=== PATIENT | male | born 1945 | race Hispanic/Latino ===

== ENCOUNTER → 2018-07-29 | Outpatient (CLI) | payer MEDICARE ==
--- NOTE | 2018-07-29 14:07 | Diagnostic Imaging Report ---
Exam: Lumbar spine AP lateral oblique and sacrum AP and lateral History: Back pain Comparison: None. Findings: No fracture. Degenerative anterolisthesis of L4 on L5. Multilevel degenerative endplate change most prominent at L5-S1 with vacuum effect. Facet arthrosis L4-L5 and L5-S1. Mild sacroiliac degenerative arthrosis. 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 Mild sacroiliac degenerative arthrosis. Signed by: Dr. Antony Johnson M.D. on 07/29/2018 2:03 PM
== END ==
LOC: RAD 12:47
PROVIDERS: ATTEND Internal Medicine
DX: M54.5 Low back pain (principal)
CPT/HCPCS: 72110; 72220

== ENCOUNTER → 2019-03-05 | Outpatient (CLI) | payer MEDICARE ==
--- NOTE | 2019-03-05 14:18 | Diagnostic Imaging Report ---
EXAMINATION: CHEST 2 VIEWS INDICATION: Chest pain. COMPARISON: None FINDINGS: TUBES and LINES: None. LUNGS: Lungs are well inflated. Lungs are clear. There is no evidence of pneumonia or pulmonary edema. PLEURA: No pleural effusion or pneumothorax. HEART AND MEDIASTINUM: The cardiomediastinal silhouette is unremarkable. BONES AND SOFT TISSUES: No acute osseous abnormality. Degenerative changes of the visualized spine. UPPER ABDOMEN: No free air under the diaphragm. IMPRESSION: No acute radiographic abnormality. Signed by: Dr. Jac Germain MD on 03/05/2019 2:14 PM
== END ==
LOC: RAD 12:59
PROVIDERS: ATTEND Internal Medicine
DX: R07.9 Chest pain, unspecified (principal)
CPT/HCPCS: 71046

== ENCOUNTER → 2019-04-21 | Day surgery (SDC) | payer MEDICARE ==
[~2019-04-21] MED LIST: ASPIR 8181 MG PO; CARVEDILOL3.125 MG PO; FENTANYL CITRATE/PF 100MCG/2 ML INJ ONE; FLOMAX0.4 MG PO; LEVOTHYROXINE50 MCG PO; LIDOCAINE HCL 1% 2 ML AMP ONE; MELOXICAM7.5 MG PO; MIDAZOLAM HCL 2 MG/2 ML VIAL ONE; OR PHACO EYE KIT ONE; PRAVASTATIN SOD20 MG PO; PREOP PHACO EYE KIT ONE
--- OUTSIDE RECORDS SUMMARY | 2019-04-21 11:58 | XMS REPORT ---
Author [facility] Address Unknown Phone Unavailable Care Team Providers Care Pararescue Manager Name Role Phone Alexsandra OLSON Unavailable Unavailable Problems This patient has no known problems. Allergies, Adverse Reactions, Alerts This patient has no known allergies or adverse reactions. Medications This patient has no known medications. Results Test Description Test Time Test Comments Text Results Atomic Results Result Comments CHEST 2 VIEWS 2019-03-05 14:12:00 [facility] [address] [address] Patient Name: JAYDE CRUZ MR #: [id number] : 1945 Age/Sex: 73/M Req #: [id number] Adm Physician: Ordered by: SUBHA OLSON MD Report #: [id number] Location: [facility] Room/Bed: Procedure: [id number] DX/CHEST 2 VIEWS Exam Date: 03/05/19 Exam Time: 1330 REPORT STATUS: Signed EXAMINATION: CHEST 2 VIEWS INDICATION: Chest pain. COMPARISON: None FINDINGS: TUBES and LINES: None. LUNGS: Lungs are well inflated. Lungs are clear. There is no evidence of pneumonia or pulmonary edema. PLEURA: No pleural effusion or pneumothorax. HEART AND MEDIASTINUM: The cardiomediastinal silhouette is unremarkable. BONES AND SOFT TISSUES: No acute osseous abnormality. Degenerative changes of the visualized spine. UPPER ABDOMEN: No free air under the diaphragm. IMPRESSION: No acute radiographic abnormality. Signed by: Dr. Laurent Benitez MD on 03/05/2019 2:14 PM Dictated By: LAURENT BENITEZ MD 13 Transcribed By: JEFFREY on 03/05/191413 COPY TO: SUBHA OLSON MD SACRUM X-RAY 2018-07-29 14:02:[address] [address] Patient Name: JAYDE CRUZ MR #: [id number] : 1945 Age/Sex: 72/M Req #: [id number] Adm Physician: Ordered by: SUBHA OLSON MD Report #: [id number] Location: [facility] Room/Bed: Procedure: [id number] DX/SACRUM X-RAY Exam Date: 07/29/18 Exam Time: 1320 REPORT STATUS: Signed Exam: Lumbar spine AP lateral oblique and sacrum AP and lateral History: Back pain Comparison: None. Findings: No fracture. Degenerative anterolisthesis of L4 on L5. Multilevel degenerative endplate change most prominent at L5-S1 with vacuum effect. Facet arthrosis L4-L5 and L5-S1. Mild sacroiliac degenerative arthrosis. 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 Mild sacroiliac degenerative arthrosis. Signed by: Dr. Amy Agarwal M.D. on 07/29/2018 2:03 PM Dictated By: AMY AGARWAL MD 02 Transcribed By: JEFFREY on 07/29/181402 COPY TO: SUBHA OLSON MD SP LUMBAR, COMPLETE MIN 4VW 2018-07-29 14:02:[address] [address] Patient Name: JAYDE CRUZ MR #: [id number] : 1945 Age/Sex: 72/M Req #: [id number] Adm Physician: Ordered by: SUBHA OLSON MD Report #: [id number] Location: [facility] Room/Bed: Procedure: [id number] DX/SP LUMBAR, COMPLETE MIN 4VW Exam Date: 07/29/18 Exam Time: 1320 REPORT STATUS: Signed Exam: Lumbar spine AP lateral oblique and sacrum AP and lateral History: Back pain Comparison: None. Findings: No fracture. Degenerative anterolisthesis of L4 on L5. Multilevel degenerative endplate change most prominent at L5-S1 with vacuum effect. Facet arthrosis L4-L5 and L5-S1. Mild sacroiliac degenerative arthrosis. 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 Mild sacroiliac degenerative arthrosis. Signed by: Dr. Amy Agarwal M.D. on 07/29/2018 2:03 PM Dictated By: AMY AGARWAL MD 02 Transcribed By: JEFFREY on 07/29/181402 COPY TO: SUBHA OLSON MD
[2019-04-21 16:00] VITALS: BP 131/79
== END | disposition home or self-care (01) ==
LOC: OR 11:56
PROVIDERS: ATTEND Ophthalmology
DX: H25.11 Age-related nuclear cataract, right eye (principal); I10 Essential (primary) hypertension; E78.5 Hyperlipidemia, unspecified; E03.9 Hypothyroidism, unspecified; N40.0 Benign prostatic hyperplasia without lower urinary tract symptoms; Z79.82 Long term (current) use of aspirin
CPT/HCPCS: 66984; J2001; J2250; V2632

== ENCOUNTER → 2019-05-05 | Day surgery (SDC) | payer MEDICARE ==
[~2019-05-05] MED LIST changes: -LIDOCAINE HCL 1% 2 ML AMP ONE
[2019-05-05 13:40] VITALS: BP 131/77
== END | disposition home or self-care (01) ==
LOC: OR 10:07
PROVIDERS: ATTEND Ophthalmology
DX: H25.12 Age-related nuclear cataract, left eye (principal); E03.9 Hypothyroidism, unspecified; M54.2 Cervicalgia; I10 Essential (primary) hypertension; E78.5 Hyperlipidemia, unspecified; N40.0 Benign prostatic hyperplasia without lower urinary tract symptoms; Z79.82 Long term (current) use of aspirin; Z87.01 Personal history of pneumonia (recurrent)
CPT/HCPCS: 66984; J2250; V2632; J3010

== ENCOUNTER 2020-08-31 13:56 | Inpatient (IN) | payer MEDICARE ==
[~2020-08-31] VITALS: Ht 190.5 cm; Wt 87.5 kg
[~2020-08-31 13:56] MED LIST changes: -FENTANYL CITRATE/PF 100MCG/2 ML INJ ONE; -MIDAZOLAM HCL 2 MG/2 ML VIAL ONE; -OR PHACO EYE KIT ONE; -PREOP PHACO EYE KIT ONE
[2020-08-31] MEDS ORDERED: PANTOPRAZOLE 40 MG 10ML VIAL IV STA (14:16)
[2020-08-31] MEDS ORDERED: ASPIRIN 81 MG CHEW TAB PO ONE (14:30)
[2020-08-31 14:46] LABS: BASOPHILS % 0.6 % (0.0-1.0); EOSINOPHILS % 0.7 % (0.0-6.0); HEMATOCRIT 41.3 % (38.2-49.6); HEMOGLOBIN 14.4 g/dL (14.0-18.0); LYMPHOCYTES # (AUTO) 1.3 (1.0-3.2); LYMPHOCYTES % 23.1 % (18.0-39.1); MEAN CORPUSCULAR HGB CONC 34.9 g/dL (31-35); MEAN CORPUSCULAR VOLUME 88.8 fL (81-99); MONOCYTES # (AUTO) 0.3 (0.2-0.8); MONOCYTES % 6.3 % (4.4-11.3); NEUTROPHILS # (AUTO) 3.7 (2.1-6.9); NEUTROPHILS % 69.1 % (38.7-80.0); PLATELET COUNT 157 x10e3/uL (140-360); RED BLOOD COUNT 4.65 x10e6/uL (4.3-5.7); RED CELL DISTRIBUTION WIDTH 12.6 % (11.7-14.4)
[2020-08-31 14:51] LABS: INR 0.91; PARTIAL THROMBOPLASTIN TIME 30.8 seconds (23.8-35.5); PROTHROMBIN TIME 12.7 seconds (11.9-14.5)
[2020-08-31 15:01] LABS: ALANINE AMINOTRANSFERASE 16 IU/L (0-55); ALBUMIN/GLOBULIN RATIO 1.2 (0.8-2.0); ALKALINE PHOSPHATASE 78 IU/L (40-150); ANION GAP 11.1 mmol/L (8-16); BLOOD UREA NITROGEN 12 mg/dL (7-26); BUN/CREATININE RATIO 13 (6-25); CALCIUM 8.4 mg/dL (8.4-10.2); CARBON DIOXIDE 26 mmol/L (22-29); CHLORIDE 105 mmol/L (98-107); CREATINE KINASE 94 IU/L (30-200); CREATININE, SERUM 0.95 mg/dL (0.72-1.25); EST GLOMERULAR FILTRATION RATE > 60 ML/MIN (60-); GLUCOSE 114 mg/dL (74-118); POTASSIUM 4.1 mmol/L (3.5-5.1); SODIUM 138 mmol/L (136-145)
--- NOTE | 2020-08-31 15:25 | Diagnostic Imaging Report ---
EXAM: CHEST SINGLE (NOT PORTABLE) DATE: 08/31/2020 2:25 PM INDICATION: Chest pain COMPARISON: 03/05/2019 FINDINGS: The trachea is midline. The lungs are symmetrically expanded without evidence for large focal consolidation, pneumothorax, or significant pleural effusion. The cardiomediastinal silhouette and pulmonary vasculature are within normal limits. No acute osseous abnormality is identified. The surrounding soft tissues are unremarkable. IMPRESSION: No acute cardiopulmonary process identified. Signed by: Dr. Cabrera Negron MD on 08/31/2020 3:21 PM
--- NOTE | 2020-08-31 16:01 | Emergency Department Note ---
History of Present Illnes History of Present Illness Chief Complaint: Chest Pain History of Present Illness This is a 75 year old male PATIENT IN FROM HOME WITH COMPLAINTS OF CHEST PAIN OFF AND ON X 6 DAYS; STATES THAT HE SAW DR Jered OLSON 2 DAYS AGO FOR THE CHEST PAIN ANDWAS GIVEN NITRO TABS. STATES TOOK A NITRO THIS MORNING AND IT HELPED, BUT THEN THE PAIN CAME BACK. PATIENT ALERT AND ORIENTED, RESP EVEN AND NONLABORED, APPEARS IN NO DISTRESS, DENIES PAIN AT THIS TIME. Historian: Patient Arrival Mode: Car Roll Shop Supervisor Required: No Onset (how long ago): day(s) (6) Location: Quality: PRESSURE Radiation: Reports non-radiation Severity: moderate Onset quality: gradual Timing of current episode: intermittent Progression: waxing and waning Chronicity: new Relieving factors: none Exacerbating factors: none Associated symptoms: Reports denies other symptoms Past Medical/Family History Physician Review I have reviewed the patient's past medical and family history. Any updates have been documented here. Past Medical History Recent Fever: No Clinical Suspicion of Infectio: No New/Unexplained Change in Ment: No Past Medical History: Hypertension, Hypothyroidism, GERD, Hyperlipedemia Other Medical History: BPH Past Surgical History: Cholecysctectomy, Appendectomy Social History Smoking Cessation: Never Smoker Counseling Performed: No Alcohol Use: Social Any Illegal Drug Use: No TB Exposure/Symptoms: No Physically hurt or threatened: No Family History Family history of heart diseas: Yes Other Last Tetanus: Y Any Pre-Existing Lines (PICC,: No Review of Systems Review of Systems Constitutional: Reports no symptoms EENTM: Reports no symptoms Cardiovascular: Reports as per HPI Respiratory: Reports no symptoms Gastrointestinal: Reports no symptoms Genitourinary: Reports no symptoms Musculoskeletal: Reports no symptoms Integumentary: Reports no symptoms Neurological: Reports no symptoms Psychological: Reports no symptoms Endocrine: Reports no symptoms Hematological/Lymphatic: Reports no symptoms Review of other systems: All other systems negative Physical Exam Related Data Allergies: Coded Allergies: No Known Allergies (Unverified , 08/26/15) Triage Vital Signs Vital Signs Date Time Temp Pulse Resp B/P (MAP) Pulse Ox O2 Delivery O2 Flow Rate FiO2 08/31/20 14:11 98.2 66 20 147/84 100 Room Air Vital signs reviewed: Yes Physical Exam CONSTITUTIONAL Constitutional: Present well-developed, Present well-nourished HENT HENT: Present normocephalic, Present atraumatic, Present oropharynx clear/moist, Present nose normal HENT L/R: Present left ext ear normal, Present right ext ear normal EYES Eyes: Reports PERRL, Reports conjunctivae normal NECK Neck: Present ROM normal PULMONARY Pulmonary: Present effort normal, Present breath sounds normal CARDIOVASCULAR Cardiovascular: Present regular rhythm, Present heart sounds normal, Present capillary refill normal, Present normal rate GASTROINTESTINAL Abdominal: Present soft, Present nontender, Present bowel sounds normal GENITOURINARY Genitourinary: Present exam deferred SKIN Skin: Present warm, Present dry MUSCULOSKELETAL Musculoskeletal: Present ROM normal NEUROLOGICAL Neurological: Present alert, Present oriented x 3, Present no gross motor or sensory deficits PSYCHOLOGICAL Psychological: Present mood/affect normal, Present judgement normal Results Laboratory Result Diagram: 08/31/20 1240 08/31/20 1420 Laboratory Laboratory Tests Test 08/31/20 14:20 08/31/20 12:40 Prothrombin Time 12.7 seconds (11.9-14.5) Prothromb Time International Ratio 0.91 Activated Partial Thromboplast Time 30.8 seconds (23.8-35.5) Sodium Level 138 mmol/L (136-145) Potassium Level 4.1 mmol/L (3.5-5.1) Chloride Level 105 mmol/L (98-107) Carbon Dioxide Level 26 mmol/L (22-29) Anion Gap 11.1 mmol/L (8-16) Blood Urea Nitrogen 12 mg/dL (7-26) Creatinine 0.95 mg/dL (0.72-1.25) Estimat Glomerular Filtration Rate > 60 ML/MIN (60-) BUN/Creatinine Ratio 13 (6-25) Glucose Level 114 mg/dL (74-118) Calcium Level 8.4 mg/dL (8.4-10.2) Total Bilirubin 0.7 mg/dL (0.2-1.2) Aspartate Amino Transf (AST/SGOT) 20 IU/L (5-34) Alanine Aminotransferase (ALT/SGPT) 16 IU/L (0-55) Alkaline Phosphatase 78 IU/L (40-150) Creatine Kinase 94 IU/L (30-200) Creatine Kinase MB 1.80 ng/mL (0-5.0) Troponin I < 0.001 ng/mL (0-0.300) B-Type Natriuretic Peptide 30.4 pg/mL (0-100) Total Protein 7.3 g/dL (6.5-8.1) Albumin 4.0 g/dL (3.5-5.0) Globulin 3.3 g/dL (2.3-3.5) Albumin/Globulin Ratio 1.2 (0.8-2.0) White Blood Count 5.40 x10e3/uL (4.8-10.8) Red Blood Count 4.65 x10e6/uL (4.3-5.7) Hemoglobin 14.4 g/dL (14.0-18.0) Hematocrit 41.3 % (38.2-49.6) Mean Corpuscular Volume 88.8 fL (81-99) Mean Corpuscular Hemoglobin 31.0 pg (28-32) Mean Corpuscular Hemoglobin Concent 34.9 g/dL (31-35) Red Cell Distribution Width 12.6 % (11.7-14.4) Platelet Count 157 x10e3/uL (140-360) Neutrophils (%) (Auto) 69.1 % (38.7-80.0) Lymphocytes (%) (Auto) 23.1 % (18.0-39.1) Monocytes (%) (Auto) 6.3 % (4.4-11.3) Eosinophils (%) (Auto) 0.7 % (0.0-6.0) Basophils (%) (Auto) 0.6 % (0.0-1.0) Neutrophils # (Auto) 3.7 (2.1-6.9) Lymphocytes # (Auto) 1.3 (1.0-3.2) Monocytes # (Auto) 0.3 (0.2-0.8) Eosinophils # (Auto) 0.0 (0.0-0.4) Basophils # (Auto) 0.0 (0.0-0.1) Absolute Immature Granulocyte (auto 0.01 x10e3/uL (0-0.1) Lab results reviewed: Yes Imaging Imaging results reviewed: Yes Procedures 12 Lead ECG Interpretation ECG Interpretation : ECG: ECG 1 Roll Shop Supervisor: Interpreted by ED physician Date: Aug 31, 2020 Time: 14:13 Rhythm: sinus rhythm Ectopy: infrequent PVC's (AND PAC'S) Rate: normal BPM: 76 QRS axis: right ST segments normal: Yes T waves normal: Yes Clinical Impression: abnormal ECG Assessment & Plan Medical Decision Making MDM PT WITH CP AND KNOWN CAD 80% LAD LESION - CBC, CHEM, CARDIACS, ECG, CXR - ADMIT R/O STEMI/NSTEMI/ACS Reassessment Reassessment PT OF Gabriela OLSON - ADMIT TO DR COPE, I SPOKE W/ DR MCADNIEL FOR CONSULT Assessment & Plan Final Impression: (1) Chest pain Depart Disposition: ADMITTED Last Vital Signs Date Time Temp Pulse Resp B/P (MAP) Pulse Ox O2 Delivery O2 Flow Rate FiO2 08/31/20 14:11 98.2 66 20 147/84 100 Room Air Home Meds Reported Medications Meloxicam (MELOXICAM) 7.5 Mg Tablet, 15 MG PO PRN, #30 TAB 04/15/19 Aspirin (ASPIR 81) 81 Mg Tablet.dr, 81 MG PO DAILY 04/15/19 Levothyroxine Sodium (LEVOTHYROXINE SODIUM) 50 Mcg Tablet, 25 MCG PO DAILY, #30 TAB 04/15/19 Pravastatin Sodium (PRAVASTATIN SODIUM) 20 Mg Tablet, 20 MG PO DAILY 04/15/19 Carvedilol (CARVEDILOL) 3.125 Mg Tablet, 3.125 MG PO BID, #60 TAB 04/15/19 Tamsulosin Hcl* (FLOMAX*) 0.4 Mg Cap, 0.4 MG PO DAILY, #30 CAP 04/15/19 Medications in the ED Pantoprazole Sodium 40 mg ONCE STAT IV ; Start 08/31/20 at 14:16; Stop 08/31/20 at 14:26; Status DC Aspirin 81 mg PRN ONCE PO ; Start 08/31/20 at 14:30; Stop 08/31/20 at 14:31; Status DC JAVY CABALLERO MD Aug 31, 2020 16:01
[2020-08-31] MEDS ORDERED: ONDANSETRON HCL INJ 2MG/ML 2ML 2 MG/ML VIAL IV PRN (16:15)
[2020-08-31] MEDS ORDERED: MORPHINE SULFATE 2 MG/ML SYR 1ML IV PRN (16:15)
[2020-08-31] MEDS ORDERED: NITROGLYCERIN 0.4 MG SUBL SL PRN (16:15)
[2020-08-31] MEDS: FAMOTIDINE 20 MG/2 ML VIAL IV SCH (16:34)
[2020-08-31 21:04] VITALS: BP 137/89
[2020-08-31 21:05] VITALS: BP 137/89
[2020-08-31] MEDS ORDERED: PRAVASTATIN 20 MG TAB PO SCH (21:45)
[2020-08-31] MEDS ORDERED: MELOXICAM 7.5 MG TAB PO PRN (21:45)
--- NOTE | 2020-08-31 21:45 | NUR ---
IV TO L AC REMOVED D/T OCCLUSION. CATHETER TIP INTACT, PRESSURE DRESSING WITH COBAN APPLIED D/T BLOOD THINNERS TO ENSURE HEMOSTASIS. NEW IV PLACED TO R AC 20G. Addendum: 08/31/20 at 2252 by Misty Javier RN WRONG PATIENT. L AC 20G IV INTACT.
[2020-08-31 22:51] LABS: CREATINE KINASE MB 1.6 ng/mL (0-5.0)
[2020-09-01] VITALS (15 sets, daily range): BP systolic 106–135; BP diastolic 63–83
[2020-09-01 05:28] LABS: BASOPHILS % 0.7 % (0.0-1.0); EOSINOPHILS # (AUTO) 0.1 (0.0-0.4); EOSINOPHILS % 2.2 % (0.0-6.0); HEMATOCRIT 38.3 % (38.2-49.6); HEMOGLOBIN 13.7 g/dL (14.0-18.0); LYMPHOCYTES # (AUTO) 1.7 (1.0-3.2); LYMPHOCYTES % 28.9 % (18.0-39.1); MEAN CORPUSCULAR HEMOGLOBIN 31.9 pg (28-32); MEAN CORPUSCULAR HGB CONC 35.8 g/dL (31-35); MEAN CORPUSCULAR VOLUME 89.1 fL (81-99); MONOCYTES # (AUTO) 0.5 (0.2-0.8); MONOCYTES % 8.5 % (4.4-11.3); NEUTROPHILS # (AUTO) 3.5 (2.1-6.9); NEUTROPHILS % 59.4 % (38.7-80.0); PLATELET COUNT 148 x10e3/uL (140-360); RED CELL DISTRIBUTION WIDTH 12.4 % (11.7-14.4)
[2020-09-01] MEDS ORDERED: HYDRALAZINE HCL 20 MG/ML VIAL IV PRN ×2 (05:30→09:00)
[2020-09-01] MEDS: FAMOTIDINE 20 MG/2 ML VIAL IV SCH ×2 (05:57→17:02)
[2020-09-01] MEDS: LEVOTHYROXINE SODIUM 25 MCG TABLET PO SCH (05:57)
[2020-09-01 06:07] LABS: ALANINE AMINOTRANSFERASE 14 IU/L (0-55); ALBUMIN 3.5 g/dL (3.5-5.0); ALBUMIN/GLOBULIN RATIO 1.2 (0.8-2.0); ALKALINE PHOSPHATASE 64 IU/L (40-150); ANION GAP 11.9 mmol/L (8-16); BLOOD UREA NITROGEN 12 mg/dL (7-26); BUN/CREATININE RATIO 15 (6-25); CALCIUM 8.4 mg/dL (8.4-10.2); CARBON DIOXIDE 25 mmol/L (22-29); CHLORIDE 107 mmol/L (98-107); CHOL/HDL RATIO 2.3 (3.9-4.7); CHOLESTEROL 133 MD/DL (0-199); CREATININE, SERUM 0.79 mg/dL (0.72-1.25); EST GLOMERULAR FILTRATION RATE > 60 ML/MIN (60-); GLUCOSE 87 mg/dL (74-118); HDL CHOLESTEROL 59 MG/DL (40-60); LDL CHOLESTEROL 59 MG/DL (60-130); POTASSIUM 3.9 mmol/L (3.5-5.1); SODIUM 140 mmol/L (136-145); TRIGLYCERIDES 73 MG/DL (0-149)
[2020-09-01 06:20] LABS: CREATINE KINASE 79 IU/L (30-200)
[2020-09-01] MEDS: ASPIRIN 81 MG ENTERIC COATED PO SCH (08:11)
[2020-09-01] MEDS: TAMSULOSIN HCL 0.4 MG CAP PO SCH (08:11)
[2020-09-01] MEDS ORDERED: DOCUSATE SODIUM 100 MG CAP PO PRN (09:00)
[2020-09-01] MEDS ORDERED: POLYETHYLENE GLYCOL 3350 17 GM PACK PO PRN (09:00)
[2020-09-01] MEDS ORDERED: ACETAMINOPHEN 325 MG TAB PO PRN (09:00)
[2020-09-01] MEDS ORDERED: ONDANSETRON HCL INJ 2MG/ML 2ML 2 MG/ML VIAL IV PRN ×2 (09:00→14:30)
[2020-09-01] MEDS ORDERED: GUAIFENESIN/CODEINE 10 ML CUP PO PRN (09:00)
[2020-09-01] MEDS ORDERED: DEXTROSE 50% SYRINGE 50 ML IV PRN (09:00)
[2020-09-01] MEDS ORDERED: HYDROCODONE/APAP 5MG-325MG TAB PO PRN ×2 (09:00→14:30)
[2020-09-01] MEDS ORDERED: MELATONIN 5 MG TABLET PO PRN (09:00)
[2020-09-01] MEDS ORDERED: BENZONATATE 100 MG CAP PO PRN (09:00)
[2020-09-01] MEDS ORDERED: CLOPIDOGREL BISULFATE 75 MG TAB PO ONE ×2 (11:00→15:15)
[2020-09-01] MEDS ORDERED: MIDAZOLAM HCL 2 MG/2 ML VIAL ONE (12:58)
[2020-09-01] MEDS ORDERED: HEPARIN SOD/SOD CHLORIDE 2,000 ML ONE (12:59)
[2020-09-01] MEDS ORDERED: FENTANYL CITRATE/PF 100MCG/2 ML INJ ONE (12:59)
[2020-09-01] MEDS ORDERED: LIDOCAINE HCL 2% LOCAL 20 ML VIAL ONE (12:59)
[2020-09-01] MEDS ORDERED: IOPAMIDOL 370 MG/ML 200 ML INFUS..BTL INJ ONE (12:59)
[2020-09-01] MEDS ORDERED: SODIUM CHLORIDE 0.9% 1000ML 1,000 ML ONE (13:00)
--- NOTE | 2020-09-01 13:13 | NUR ---
Patient off the unit for procedure in lease administration supervisor, stable, at bed side
--- NOTE | 2020-09-01 13:15 | Consultation ---
DATE OF CONSULTATION: Cardiac Consultation REASON FOR CONSULTATION: Chest pain. HISTORY OF PRESENT ILLNESS: Mr. Brito is a 75-year-old gentleman, who is known with hypertension, hyperlipidemia, and coronary artery disease. In December 2016, he had a cardiac catheterization, which showed mid to distal LAD lesion at 80%, but more important, there is severe muscle bridge proximal to it and at the lesion and distal to it. We elected to treated him medically. He is doing extremely well except for the last week, he is having repeated angina. It is becoming very unstable. Associated with diaphoresis, typical chest pain, and typical symptoms. He came to the emergency room. His cardiac enzymes are normal. Cardiac consultation is obtained. I visited with the patient, whom he give atypical symptoms for coronary artery disease. In fact, the patient is very compliant with his medication. His pain becoming progressively worse. More important, it is associated with diaphoresis, nausea, vomiting, and then they disappeared. The patient is very alarmed by these symptoms, which is really progressive. REVIEW OF SYSTEMS: GENERAL: No fever. No chills. HEENT: No vision problem. No hearing problem. PULMONARY: No cough. No hemoptysis. CARDIAC: As per acute illness. GI: No hematemesis. No melena. : No hematuria. No dysuria. MUSCULOSKELETAL: No aches. No pain. SOCIAL HISTORY: He is . He is nonsmoker and non-alcohol drinker. PAST MEDICAL HISTORY: 1. Hypertension. 2. Coronary artery disease. 3. Hypercholesterolemia. 4. Appendectomy. 5. Cholecystectomy. FAMILY HISTORY: Mother at age 89 with kidney failure. She was diabetic. Father of colon cancer at age 79. Fifteen siblings, several of them with coronary artery disease and myocardial infarction, and one brother of prostate cancer. HOME MEDICATIONS: Aspirin 81 mg a day, Coreg 3.125 mg twice a day, levothyroxine 50 mcg a day, pravastatin 20 mg a day, and Flomax 0.4 mg a day. ALLERGIES: NONE. PHYSICAL EXAMINATION: VITAL SIGNS: Height of 6 feet 3 inches, weight of 204 pounds. Blood pressure 130/70, heart rate of 70, and respiratory rate of 18. HEENT: Pupils are equal and reactive. NECK: No elevation of jugular venous pulsation. No bruit. CHEST: Clear to auscultation and percussion. HEART: PMI 5th left intercostal space. Normal first and second heart sound. ABDOMEN: Scar is noted. No organomegaly. No abdominal bruits. EXTREMITIES: No cyanosis. No clubbing. No edema. NEUROLOGIC: Nonfocal. LABORATORY DATA: Cardiac enzymes are normal. Triglycerides of 73, cholesterol of 133, HDL of 59, and LDL of 59. Chest x-ray by report is normal. IMPRESSION AND PLAN: 1. Acute coronary syndrome with very unstable symptoms. 2. Known to have coronary artery disease. 3. Past history of abnormal nuclear stress test. 4. Hypertension. 5. Abnormal EKG. Case discussed and explained. We are going to proceed with cardiac catheterization with possible intervention. Procedure risks, benefits, and alternatives are discussed and explained. MD NGUYEN Martins/MODL /[id number]
[2020-09-01] MEDS ORDERED: BIVALRIUDIN 250 MG/VIAL VIAL IV ONE (13:42)
[2020-09-01] MEDS ORDERED: SODIUM CHLORIDE 0.9% 50ML 50 ML ONE (13:43)
[2020-09-01] MEDS ORDERED: CLOPIDOGREL BISULFATE 75 MG TAB ONE (13:44)
[2020-09-01] MEDS ORDERED: ASPIRIN 325 MG TAB ONE (13:44)
--- NOTE | 2020-09-01 14:01 | NUR ---
1410p Recovery phase initiated bedside report received from LINH Cullen.Identiferx2 ,Alert oriented and appropriate, PERRLA, respirations even and unlabored to room air. Pulses x4 extremities equal and strong. Right hand + neurovascular function Cap fill brisk < [address] with stop cock and secured No s/s of hematoma or gross abnormality. Skin warm and dry integrity appears intact. IV 0.9Ns to left ac. presents healthy w/o s/s of infiltration or complaint. Angiomax infusion @ 32.9 ml till complete. Abdomen soft and supple. pt offered toileting, denies need to urinate or defecate. No personal affects with patient. Family not available. Pt understanding of POC. Bedside telemetry/monitoring initiated. Currently w/o complaint of pain or need. Call light within reach, bed low and locked, side rails up x2. pt using personal mask for COVID-19 mitigation. Sheath pull scheduled 1545pm. Reported to cath pull team for support. alejandro/linh
[2020-09-01] MEDS ORDERED: MORPHINE SULFATE INJ 4 MG/ML INJ 1ML IV PRN (14:30)
--- NOTE | 2020-09-01 15:50 | NUR ---
1550p sheath pull in progress vs stable Isidro phamer Araceli Kilpatrick on standby 1550pm B/p 119/76 Pr 67 18 99% RA 1555pm B/p 121/74 Pr 71 20 99% Ra 1600pm B/p 123/81 Pr 62 18 99% Ra 1605pm B/p 120/73 Pr62 18 99% Ra 1610pm B/p 109/75 Pr68 19 99% Ra Tegaderm site stable. No gross issues pain,pallor,pressure ds/rn
--- NOTE | 2020-09-01 16:15 | NUR ---
1615p Sheath pull completed per Isidro Kilpatrick site w/o s/s hematoma or oozing 2x2 width Tegaderm dressing PPx4 palpable.Phone report to Yael Kilpatrick pt had Lad fix and Hospitalist made rounds while in recovery area. Currently case mgt flipping room to in patient status. NO gross issues pain,pallor,pressure or dysrhythmia.ds/rn
--- NOTE | 2020-09-01 16:30 | NUR ---
1630p Transfered to floor handoff complete to Shonna Conley by bed and with tele.. Report to tele room Left pt in room with family. Bed breaks on,call light at bedside. Site stable No gross issues pain pallor,pressure and dysrhythmia.alejandro/rn
--- NOTE | 2020-09-01 16:51 | NUR ---
Recvd patient from Learning Operations Specialist. AAOx3, Pedal pulse +1 on both legs, rt groin insertion site dressing intact, soft, no swelling or hematoma noted, keep monitoring, Bed rest until 9pm. at bed side
[2020-09-01] MEDS ORDERED: ENOXAPARIN SOD INJ 40 MG/0.4 ML SYR SC SCH (17:00)
[2020-09-01] MEDS: SODIUM CHLORIDE 0.9% 1000ML 1,000 ML IV SCH (17:01)
[2020-09-01] MEDS ORDERED: ATORVASTATIN 40 MG TAB PO SCH (21:00)
[2020-09-01] MEDS ORDERED: ATORVASTATIN 20 MG TAB PO SCH (21:00)
--- NOTE | 2020-09-01 21:00 | NUR ---
PATIENT'S TIME TO STAY FLAT IS FINISHED. CHECKED R GROIN DRESSING, C/D/I, TISSUE SOFT, NO DISCOLORATION NOTED. PEDAL PULSES PALPABLE. PATIENT VERBALIZED HE WOULD BE VERY CAREFUL WITH SITE TO R GROIN AND CALL IF ANYTHING CHANGES. WILL CONTINUE TO MONITOR CLOSELY.
[2020-09-01] MEDS ORDERED: CALCIUM CARBONATE 500 MG CHEWABLE TABS PO PRN (21:15)
--- NOTE | 2020-09-01 22:37 | Operative Report ---
DATE OF PROCEDURE: 09/01/2020 SURGEON: Becca Wheeler MD PROCEDURES PERFORMED: 1. Left heart cardiac catheterization coronary angiography. 2. Left ventriculography. 3. PCI (drug eluting) stent placement to the distal LAD. INDICATIONS FOR PROCEDURE: Mr. Brito is a 75-year-old male with past medical history of hypertension, hypercholesteremia, CAD, presents to this institution with class 4 angina/chest pain at rest that is relatively new onset compatible with an unstable angina. He was taken urgently to the laborer beam house. DESCRIPTION OF PROCEDURE: After risks, benefits, pros and cons of this procedure were explained, the patient agreed to procedure. The patient was brought to the cardiac catheterization laboratory where the right groin was prepped and draped in using sterile fashion. A 1% lidocaine solution was used to numb the right groin area. Access to the right femoral artery was obtained utilizing micropuncture system and a short 4- Somali Terumo sheath was placed. Selective coronary angiography of the tejon left and right coronary artery was performed with a JL5 and 3DRC diagnostic catheters respectively. Angled pigtail catheter was placed in the ventricle for ventriculography and hemodynamic assessment of ventricular filling pressures. In short, we ended up finding a 99% hazy distal LAD lesion, which was clearly the culprit artery. We decided to proceed with intervention. A 4-Somali Terumo sheath was upsized to a 6-Somali femoral sheath. IV Angiomax was given for systemic anticoagulation. We took a 6-Somali XB 4.0 guiding catheter and selected the left main coronary ostia. Utilizing a 180 cm run- through wire, we crossed the lesion. We took a resolute Venkat 2.0 x 18 mm drug-eluting stent deployed that up to 16 atmospheres of inflation for 30 seconds, which yielded the lesion. Final angiography revealed 0% residual stenosis, SAM-3 flow, and no complications. At that point in time, we decided to conclude the case. The sheath remains for manual pull once blood thickened in about 2 hours. COMPLICATIONS: None. ESTIMATED BLOOD LOSS: Minimal. FINDINGS: 1. Left main is angiographically normal, gives rise to an LAD and circumflex branch. 2. The LAD has a 99% distal stenosis with haziness, which is clearly the culprit lesion. The 2nd diagonal branch is 100% totally occluded and is filled from [id number] collaterals from the distal LAD. 3. Left circumflex artery gives rise to a high anterolateral marginal branch and mid marginal branch and its branches are just with mild luminal irregularities. 4. The RCA is a large caliber vessel, dominant, gives rise to a large right PDA and large right PLV branch. There is 30% diffuse stenosis through this vessel. 5. Left ventricular ejection fraction is 60%. End-diastolic pressure is 18 mmHg. There is no significant LV to aortic pullback gradient. INTERVENTION SUMMARY: Successful treatment of the 99% distal LAD lesion with implantation of a resolute Venkat 2.0 x 18 mm drug eluting stent resulting in 0% residual stenosis, improvement of flow from SAM-3 with no complications. PLAN/RECOMMENDATIONS: 1. Aspirin and Plavix therapy. 2. Statin therapy. 3. Aggressive risk factor modification and medical therapy. MD ELIUD Ram/MICHAEL /[id number]
[2020-09-02] MEDS ORDERED: SODIUM CHLORIDE 0.9% 1000ML 1,000 ML IV SCH (00:15)
[2020-09-02] MEDS: FAMOTIDINE 20 MG/2 ML VIAL IV SCH (04:56)
[2020-09-02] MEDS: LEVOTHYROXINE SODIUM 25 MCG TABLET PO SCH (04:56)
[2020-09-02] MEDS: SODIUM CHLORIDE 0.9% 1000ML 1,000 ML IV SCH (04:56)
[2020-09-02 04:59] VITALS: BP 108/58
[2020-09-02 05:13] LABS: BASOPHILS % 0.6 % (0.0-1.0); EOSINOPHILS # (AUTO) 0.1 (0.0-0.4); EOSINOPHILS % 1.9 % (0.0-6.0); HEMOGLOBIN 13.5 g/dL (14.0-18.0); LYMPHOCYTES # (AUTO) 1.7 (1.0-3.2); MEAN CORPUSCULAR HEMOGLOBIN 30.6 pg (28-32); MEAN CORPUSCULAR HGB CONC 34.6 g/dL (31-35); MEAN CORPUSCULAR VOLUME 88.4 fL (81-99); MONOCYTES # (AUTO) 0.6 (0.2-0.8); MONOCYTES % 8.3 % (4.4-11.3); NEUTROPHILS # (AUTO) 4.3 (2.1-6.9); NEUTROPHILS % 63.9 % (38.7-80.0); PLATELET COUNT 157 x10e3/uL (140-360); RED BLOOD COUNT 4.41 x10e6/uL (4.3-5.7); RED CELL DISTRIBUTION WIDTH 12.5 % (11.7-14.4)
[2020-09-02 05:43] LABS: ALANINE AMINOTRANSFERASE 15 IU/L (0-55); ALBUMIN 3.5 g/dL (3.5-5.0); ALBUMIN/GLOBULIN RATIO 1.2 (0.8-2.0); ALKALINE PHOSPHATASE 73 IU/L (40-150); ANION GAP 11.7 mmol/L (8-16); BLOOD UREA NITROGEN 11 mg/dL (7-26); BUN/CREATININE RATIO 13 (6-25); CALCIUM 8.4 mg/dL (8.4-10.2); CARBON DIOXIDE 25 mmol/L (22-29); CHLORIDE 107 mmol/L (98-107); CREATININE, SERUM 0.86 mg/dL (0.72-1.25); EST GLOMERULAR FILTRATION RATE > 60 ML/MIN (60-); GLUCOSE 88 mg/dL (74-118); PHOSPHORUS 3.5 MG/DL (2.3-4.7); POTASSIUM 3.7 mmol/L (3.5-5.1); SODIUM 140 mmol/L (136-145)
[2020-09-02 06:16] LABS: CHOL/HDL RATIO 2.1 (3.9-4.7)
[2020-09-02] MEDS ORDERED: PANTOPRAZOLE SOD 40 MG TABEC PO SCH (07:30)
[2020-09-02 08:45] VITALS: BP 137/82
[2020-09-02] MEDS ORDERED: CLOPIDOGREL BISULFATE 75 MG TAB PO SCH ×2 (09:00)
[2020-09-02] MEDS: TAMSULOSIN HCL 0.4 MG CAP PO SCH (09:42)
[2020-09-02] MEDS: ASPIRIN 81 MG ENTERIC COATED PO SCH (09:42)
[2020-09-02 12:15] VITALS: BP 144/84
--- NOTE | 2020-09-02 14:18 | NUR ---
IMM letter delivered and explained to pt. He verbalized understanding. States ready to go home. Copy given to pt. Signed copy placed in chart.
[2020-09-02] MEDS ORDERED: CLOPIDOGREL75 MG PO (14:38)
[2020-09-02] MEDS ORDERED: LOSARTAN POTASS25 MG PO (14:38)
--- NOTE | 2020-09-02 14:46 | Discharge Summary ---
FINAL DISCHARGE DISGNOSES: 1. Chest pain, status post left heart catheterization with status post drug-eluting stent placement in the left anterior descending artery. 2. Hypertension. 3. Hyperlipidemia. CONSULTANTS: Cardiology. PHYSICAL EXAMINATION: VITAL SIGNS: Temperature is 97.9, pulse 57, respiratory rate is 20, blood pressure 111/80, pulse ox 99% on room air. LABORATORY FINDINGS: Show CBC 6.7, hemoglobin 13.5, hematocrit 39, platelets of 157. Chemistry reviewed. Sodium 140, potassium 3.7, chloride 107, bicarb 25, anion gap of 11. BUN is 11, creatinine is 0.86, glucose is 88, calcium is 8.4, phosphorus 3.5, magnesium 2. LFTs within normal range. Troponins were all negative. Albumin was 3.5, LDL was 51. Coagulation PT 12, INR 0.91, PTT 30.8. Silva virus not detected. MICROBIOLOGY: None. IMAGING STUDIES: Chest x-ray was found to be normal. HOSPITAL COURSE: A 75-year-old male, comes into the ED with complaints of chest pain substernally with typical symptoms. The patient underwent left heart catheterization on 09/01/2020 by Cardiology. The patient had a successful treatment of a 99% distal LAD lesion with implantation of a drug-eluting stent. The patient did well postprocedurally with no complaints. Chest pain was all resolved. He was maintained on oral anti-platelet therapy with aspirin, Plavix, statin and the rest of the cardioprotective medications. The patient stayed overnight until 09/02/2020, in which he was doing well. He was chest pain free prior to being discharged to home. His heart rate was low in which we educated the patient about discontinuing his Coreg upon discharge. The patient was cleared for discharge by Cardiology. The patient was given a prescription for aspirin, Plavix, statin as well as a low-dose ARB losartan. He was instructed to hold his Coreg. He was instructed to continue his dual anti-platelet therapy and it is very important to continue those medications as discussed with him at bedside with his present. On the day of discharge, vital signs were stable, labs reviewed and stable. The patient was seen and evaluated, examined thoroughly on the day of discharge. No complaints. The patient verbalized understanding and agrees to plan of care to follow up accordingly as an outpatient with primary care physician in 1 week and the human service coordinator in 2 weeks' time. MEDICATIONS: See med reconciliation form including aspirin, Plavix, losartan, which was provided to the patient prior to being discharged to home. He was also instructed to discontinue Coreg. DISPOSITION: Home. CONDITION: Stable. DIET: Heart healthy. In the event of any worsening symptoms, the patient was advised to come back to the ED for further evaluation. Discharge summary took greater than 35 minutes. MD FACUNDO Jacobs/MODL /[id number]
--- NOTE | 2020-09-02 15:27 | History and Physical ---
CHIEF COMPLAINT: Chest pain. HISTORY OF PRESENT ILLNESS: This is a 75-year-old male with history of hypertension, history of CAD, hyperlipidemia. He presented to the ED with complaints of underlying chest pain. He reports his chest pain was substernal with diaphoresis, typical in symptoms. No cough, congestion or any fever. The patient has a history of left heart catheterization in the past back in December 2016, showed mid to distal LAD lesion at around 80%. The patient was admitted for further evaluation and management. Cardiology was consulted. REVIEW OF SYSTEMS: Pertinent positive chest pain, diaphoresis, nausea. The rest of the 14-point review of systems are reviewed with the patient and are negative. ALLERGIES: NO KNOWN DRUG ALLERGIES. HOME MEDICATIONS: 1. Aspirin. 2. Coreg. 3. Levothyroxine. 4. Pravastatin. 5. Flomax. PAST MEDICAL HISTORY: Hypertension, CAD, hyperglyceridemia, appendectomy, cholecystectomy. PAST SURGICAL HISTORY: Cholecystectomy, appendectomy, left heart catheterization in the past. FAMILY HISTORY: Mother at age 89 with kidney failure. She was diabetic. Father at age 79 with colon cancer. SOCIAL HISTORY: No drugs, no alcohol, does not smoke. PHYSICAL EXAMINATION: VITAL SIGNS: Temperature is 97.9, pulse 57, respiratory rate 20, blood pressure 111/80, pulse ox is 99% on room air. GENERAL: No acute distress. Alert and oriented x3. Cooperative on examination. HEENT: Head is normocephalic and atraumatic. Eyes; pupils are equal, round, and reactive to light bilaterally. PULMONARY: Clear to auscultation bilaterally. No wheezing, no rales, no rhonchi, no crackles appreciated. CARDIOVASCULAR: Positive S1, S2. No murmurs, rubs, or gallops appreciated. ABDOMEN: Soft, nontender, nondistended to palpation. Bowel sounds are present. MUSCULOSKELETAL: Strength is 5/5 throughout. No evidence of muscle deficits on examination. SKIN: Intact. Warm to touch. Good cap refill. PSYCHIATRIC: Normal affect and mood. EXTREMITIES: No edema. Good range of motion. LABORATORY DATA: Show white count 5.8, hemoglobin 13, hematocrit 38, and platelets of 148. Chemistry; sodium 140, potassium 3.7, chloride 107, bicarb 25, anion gap of 11, BUN is 11, creatinine 0.86, glucose 88, calcium is 8.4. LFTs within normal range. Troponins were all negative. Albumin is 3.5. Coagulation; PT 12, INR 0.91, PTT 30. Serology; PCR was negative for coronavirus. Microbiology, none. IMAGING STUDIES: Chest x-ray, no acute cardiopulmonary issues. IMPRESSION: 1. Chest pain with unstable angina. 2. History of hypertension. 3. Hyperlipidemia. 4. History of coronary artery disease. PLAN: At this time, the patient was taken to left heart catheterization for further intervention. I spoke with Cardiology evaluated the patient at bedside in the recovery. He had a stent placed in the LAD. He is otherwise doing well with no complaints. Continue with cardioprotective medications, anti-platelet therapy, statins. Resume same home medications. Lovenox for DVT prophylaxis. Heart healthy diet. MD FACUNDO Jacobs/MODL /[id number]
--- NOTE | 2020-09-02 15:36 | NUR ---
Patient discharged home, Prescriptions given, Instruction given Not to take Carvedilol per Dr Wheeler, Rt Groin insertion site dressing intact and soft, IV canula removed with tip intact. daughter here to pick him, patient not in any distress
--- NOTE | 2020-09-02 16:15 | NUR ---
Nutrition Screen Note RD Recommendation for Physician: -Continue cardiac diet Plan of Care: RD following, monitoring for tolerance and adequacy Nutrition reason for involvement: Nutrition Risk Trigger Primary Diagnose(s): chest pain PMH: . Hypertension, Coronary artery disease, Hypercholesterolemia, Appendectomy, Cholecystectomy. Ht: 75 in Wt:193 lb BMI: 24.1 kg/m2 IBW:[address] Assessment: (09/02/20) Chart reviewed. Labs and meds reviewed. Pt is a 75 year old male admitted with chest pain. Pt reports eat usually eats all of his meals. No weight loss reported and pt mentioned he usually weighs 192 lbs. No N/V/D/C or chewing/swallowing issues. RD discussed and provided written materials regarding following a heart healthy-reduced sodium diet. Pt verbalized understanding. Will continue to monitor Current Diet: cardiac Malnutrition Evaluation (09/02/20) The patient does not meet criteria for a specified degree of malnutrition at this time. Will re-evaluate at follow-up as appropriate. Diet Education Needs Assessment: Diet education indicated Learner(s): pt Barriers: no barriers identified Cultural/Language Modifications: no cultural/language modifications Readiness: eager/acceptance Method: explanation/discussion/handout Topics: heart healthy-reduced sodium diet Understanding/Compliance: pt verbalized understanding Nutrition Care Level: low Signed: Sakshi Quesada, RD, LD
== END 2020-09-02 15:22 | disposition home or self-care (01) | DRG 247 ==
LOC: ER 14:20 → ERHOLD 16:01 → MED/SURG 20:05 → OBSVTOIN 09-01 14:24
PROVIDERS: ADMIT Internal Medicine; ATTEND Internal Medicine
PROC: 4A023N7 Measurement of Cardiac Sampling and Pressure, Left Heart, Percutaneous Approach (ICD-10-PCS; principal; 2020-09-01)
PROC: 027034Z Dilation of Coronary Artery, One Artery with Drug-eluting Intraluminal Device, Percutaneous Approach (ICD-10-PCS; 2020-09-01)
PROC: B2151ZZ Fluoroscopy of Left Heart using Low Osmolar Contrast (ICD-10-PCS; 2020-09-01)
PROC: B2111ZZ Fluoroscopy of Multiple Coronary Arteries using Low Osmolar Contrast (ICD-10-PCS; 2020-09-01)
DX: I24.9 Acute ischemic heart disease, unspecified (principal); I25.10 Atherosclerotic heart disease of native coronary artery without angina pectoris; I25.110 Atherosclerotic heart disease of native coronary artery with unstable angina pectoris; E78.5 Hyperlipidemia, unspecified; Z11.59 Encounter for screening for other viral diseases
CPT/HCPCS: 36415; 71045; 80053; 80061; 82550; 82553; 83735; 83880; 84100; 84484; 85025; 85610; 85730; 92928; 93005; 93306; 93458; 99152; 99153; 99284; C1766; C1769; C1876; C1887; G0378; J0583; J2001; J2250; J3010; J7030; Q9967

== ENCOUNTER 2020-09-05 15:05 | Observation (INO) | payer MEDICARE ==
[~2020-09-05] VITALS: Ht 190.5 cm; Wt 87.5 kg
[~2020-09-05 15:05] MED LIST changes: +CLOPIDOGREL75 MG PO; +LOSARTAN POTASS25 MG PO
[2020-09-05] MEDS ORDERED: ASPIRIN 81 MG CHEW TAB PO ONE (15:45)
[2020-09-05 16:09] LABS: BASOPHILS % 0.6 % (0.0-1.0); EOSINOPHILS # (AUTO) 0.1 (0.0-0.4); EOSINOPHILS % 1.1 % (0.0-6.0); HEMATOCRIT 40.8 % (38.2-49.6); HEMOGLOBIN 13.9 g/dL (14.0-18.0); MEAN CORPUSCULAR HEMOGLOBIN 30.5 pg (28-32); MEAN CORPUSCULAR HGB CONC 34.1 g/dL (31-35); MEAN CORPUSCULAR VOLUME 89.5 fL (81-99); MONOCYTES # (AUTO) 0.4 (0.2-0.8); MONOCYTES % 8.9 % (4.4-11.3); NEUTROPHILS # (AUTO) 3.3 (2.1-6.9); NEUTROPHILS % 69.2 % (38.7-80.0); PLATELET COUNT 161 x10e3/uL (140-360); RED BLOOD COUNT 4.56 x10e6/uL (4.3-5.7); RED CELL DISTRIBUTION WIDTH 12.6 % (11.7-14.4)
--- NOTE | 2020-09-05 16:17 | Diagnostic Imaging Report ---
EXAMINATION: CHEST SINGLE (PORTABLE) INDICATION: Chest pain COMPARISON: Chest radiograph 08/31/2020 FINDINGS: LINES/TUBES:None LUNGS:The lungs are well-inflated. No focal consolidation or pulmonary edema. PLEURA:No pleural effusion or pneumothorax. MEDIASTINUM:The cardiomediastinal silhouette appears normal in size and shape. BONES/SOFT TISSUES:No acute osseous injury. ABDOMEN:No free air under the diaphragm. IMPRESSION: No focal pneumonia or pulmonary edema. Signed by: Sarika Javier MD on 09/05/2020 4:13 PM
[2020-09-05 16:19] LABS: INR 1.04; PROTHROMBIN TIME 14.1 seconds (11.9-14.5)
[2020-09-05 16:20] LABS: PARTIAL THROMBOPLASTIN TIME 30.8 seconds (23.8-35.5)
[2020-09-05 16:29] LABS: ALANINE AMINOTRANSFERASE 16 IU/L (0-55); ALBUMIN/GLOBULIN RATIO 1.3 (0.8-2.0); ALKALINE PHOSPHATASE 68 IU/L (40-150); BLOOD UREA NITROGEN 11 mg/dL (7-26); BUN/CREATININE RATIO 13 (6-25); CALCIUM 8.8 mg/dL (8.4-10.2); CARBON DIOXIDE 26 mmol/L (22-29); CHLORIDE 105 mmol/L (98-107); CREATINE KINASE 107 IU/L (30-200); CREATININE, SERUM 0.88 mg/dL (0.72-1.25); EST GLOMERULAR FILTRATION RATE > 60 ML/MIN (60-); GLUCOSE 104 mg/dL (74-118); SODIUM 140 mmol/L (136-145)
--- NOTE | 2020-09-05 16:45 | Emergency Department Note ---
History of Present Illnes History of Present Illness Chief Complaint: Chest Pain History of Present Illness This is a 75 year old male arrives to the ED with complaints of intermittent chest pain, worse on exertion. Patient notes relief with nitroglycerin which she has taken several times while sitting in the waiting room. Chief Complaint Comment PATIENT IN FROM HOME WITH COMPLAINTS OF INTERMITTANT CHEST PRESSURE SINCE THIS MORNING; RATES PAIN 5/10. PATIENT WAS SEEN LAST WEEK FOR THE SAME AND HAD A STENT PLACED ON SATURDAY. PATIENT ALERT AND ORIENTED, RESP EVEN AND NONLABORED, APPEARS IN NO DISTRESS, A,BULATORY WITHOUT ASSISTANCE Historian: Patient Arrival Mode: Car Onset (how long ago): day(s) Radiation: Reports non-radiation Severity: mild Onset quality: gradual Duration (how long): day(s) Timing of current episode: intermittent Progression: waxing and waning Chronicity: recurrent Relieving factors: none Exacerbating factors: none Past Medical/Family History Physician Review I have reviewed the patient's past medical and family history. Any updates have been documented here. Past Medical History Recent Fever: No Clinical Suspicion of Infectio: No New/Unexplained Change in Ment: No Past Medical History: Hypertension, Hypothyroidism, GERD, Hyperlipedemia Other Medical History: BPH Past Surgical History: Cholecysctectomy, Appendectomy, PCI Other Surgery: PCI WITH STENTS Social History Physically hurt or threatened: No Other Last Tetanus: Y Review of Systems Review of Systems Constitutional: Reports no symptoms EENTM: Reports no symptoms Cardiovascular: Reports as per HPI, Reports chest pain Respiratory: Reports no symptoms Gastrointestinal: Reports no symptoms Genitourinary: Reports no symptoms Musculoskeletal: Reports no symptoms Integumentary: Reports no symptoms Neurological: Reports no symptoms Psychological: Reports no symptoms Endocrine: Reports no symptoms Hematological/Lymphatic: Reports no symptoms Physical Exam Related Data Allergies: Coded Allergies: No Known Allergies (Unverified , 08/26/15) Triage Vital Signs Vital Signs Date Time Temp Pulse Resp B/P (MAP) Pulse Ox O2 Delivery O2 Flow Rate FiO2 09/05/20 15:19 97.6 79 20 137/82 99 Room Air Vital signs reviewed: Yes Physical Exam CONSTITUTIONAL Constitutional: Present well-developed, Present well-nourished HENT HENT: Present normocephalic, Present atraumatic, Present oropharynx clear/moist, Present nose normal HENT L/R: Present left ext ear normal, Present right ext ear normal EYES Eyes: Reports PERRL, Reports conjunctivae normal NECK Neck: Present ROM normal PULMONARY Pulmonary: Present effort normal, Present breath sounds normal CARDIOVASCULAR Cardiovascular: Present regular rhythm, Present heart sounds normal, Present capillary refill normal, Present normal rate GASTROINTESTINAL Abdominal: Present soft, Present nontender, Present bowel sounds normal GENITOURINARY Genitourinary: Present exam deferred SKIN Skin: Present warm, Present dry MUSCULOSKELETAL Musculoskeletal: Present ROM normal NEUROLOGICAL Neurological: Present alert, Present oriented x 3, Present no gross motor or sensory deficits PSYCHOLOGICAL Psychological: Present mood/affect normal, Present judgement normal Results Laboratory Result Diagram: 09/05/20 1535 09/05/20 1535 Laboratory Laboratory Tests Test 09/05/20 15:35 White Blood Count 4.74 x10e3/uL (4.8-10.8) Red Blood Count 4.56 x10e6/uL (4.3-5.7) Hemoglobin 13.9 g/dL (14.0-18.0) Hematocrit 40.8 % (38.2-49.6) Mean Corpuscular Volume 89.5 fL (81-99) Mean Corpuscular Hemoglobin 30.5 pg (28-32) Mean Corpuscular Hemoglobin Concent 34.1 g/dL (31-35) Red Cell Distribution Width 12.6 % (11.7-14.4) Platelet Count 161 x10e3/uL (140-360) Neutrophils (%) (Auto) 69.2 % (38.7-80.0) Lymphocytes (%) (Auto) 20.0 % (18.0-39.1) Monocytes (%) (Auto) 8.9 % (4.4-11.3) Eosinophils (%) (Auto) 1.1 % (0.0-6.0) Basophils (%) (Auto) 0.6 % (0.0-1.0) Neutrophils # (Auto) 3.3 (2.1-6.9) Lymphocytes # (Auto) 1.0 (1.0-3.2) Monocytes # (Auto) 0.4 (0.2-0.8) Eosinophils # (Auto) 0.1 (0.0-0.4) Basophils # (Auto) 0.0 (0.0-0.1) Absolute Immature Granulocyte (auto 0.01 x10e3/uL (0-0.1) Prothrombin Time 14.1 seconds (11.9-14.5) Prothromb Time International Ratio 1.04 Activated Partial Thromboplast Time 30.8 seconds (23.8-35.5) Sodium Level 140 mmol/L (136-145) Potassium Level 4.0 mmol/L (3.5-5.1) Chloride Level 105 mmol/L (98-107) Carbon Dioxide Level 26 mmol/L (22-29) Anion Gap 13.0 mmol/L (8-16) Blood Urea Nitrogen 11 mg/dL (7-26) Creatinine 0.88 mg/dL (0.72-1.25) Estimat Glomerular Filtration Rate > 60 ML/MIN (60-) BUN/Creatinine Ratio 13 (6-25) Glucose Level 104 mg/dL (74-118) Calcium Level 8.8 mg/dL (8.4-10.2) Total Bilirubin 0.6 mg/dL (0.2-1.2) Aspartate Amino Transf (AST/SGOT) 21 IU/L (5-34) Alanine Aminotransferase (ALT/SGPT) 16 IU/L (0-55) Alkaline Phosphatase 68 IU/L (40-150) Creatine Kinase 107 IU/L (30-200) Creatine Kinase MB 1.50 ng/mL (0-5.0) Troponin I 0.011 ng/mL (0-0.300) B-Type Natriuretic Peptide 28.4 pg/mL (0-100) Total Protein 7.0 g/dL (6.5-8.1) Albumin 4.0 g/dL (3.5-5.0) Globulin 3.0 g/dL (2.3-3.5) Albumin/Globulin Ratio 1.3 (0.8-2.0) Lab results reviewed: Yes Imaging Imaging results reviewed: Yes Impressions IMPRESSION: No focal pneumonia or pulmonary edema. Assessment & Plan Medical Decision Making MDM 75-year-old male arrives the ED with complaints of chest pain, patient with a recent cardiac catheter. Patient minutes complaints of Plavix. Case discussed Dr. Wheeler and recommended outpatient workup, however, while in the ED patient continued to complain of pain and took multiple doses of nitroglycerin. Patient admitted for serial cardiac enzymes and monitoring. Assessment & Plan Final Impression: (1) Chest pain Depart Disposition: ADMITTED Last Vital Signs Date Time Temp Pulse Resp B/P (MAP) Pulse Ox O2 Delivery O2 Flow Rate FiO2 09/05/20 15:19 97.6 79 20 137/82 99 Room Air Home Meds Active Scripts Isosorbide Dinitrate (ISOSORBIDE DINITRATE) 20 Mg Tablet, 10 MG PO QID PRN for CHEST PAIN, #30 TAB Prov:RAFFY ROMERO, 09/05/20 Nitroglycerin (NITROSTAT) 0.4 Mg Tab.subl, 0.4 MG SL ONCE PRN for CHEST PAIN, #30 TAB Prov:RAFFY ROMERO, 09/05/20 Reported Medications Clopidogrel Bisulfate (CLOPIDOGREL) 75 Mg Tablet, 75 MG PO DAILY, #90 TAB 09/02/20 Losartan Potassium (LOSARTAN POTASSIUM) 25 Mg Tablet, PO DAILY, #30 09/02/20 Aspirin (ASPIR 81) 81 Mg Tablet.dr, 81 MG PO DAILY 04/15/19 Levothyroxine Sodium (LEVOTHYROXINE SODIUM) 50 Mcg Tablet, 25 MCG PO DAILY, #30 TAB 04/15/19 Pravastatin Sodium (PRAVASTATIN SODIUM) 20 Mg Tablet, 20 MG PO DAILY 04/15/19 Tamsulosin Hcl* (FLOMAX*) 0.4 Mg Cap, 0.4 MG PO DAILY, #30 CAP 04/15/19 Discontinued Reported Medications Meloxicam (MELOXICAM) 7.5 Mg Tablet, 15 MG PO PRN, #30 TAB 04/15/19 Carvedilol (CARVEDILOL) 3.125 Mg Tablet, 3.125 MG PO BID, #60 TAB 04/15/19 Medications in the ED Aspirin 81 mg PRN ONCE PO ; Start 09/05/20 at 15:45; Stop 09/05/20 at 15:46; Status DC RAFFY ROMERO DO Sep 05, 2020 16:45
[2020-09-05] MEDS ORDERED: NITROSTAT0.4 MG SL (16:48)
[2020-09-05] MEDS ORDERED: ISOSORBIDE DINI20 MG PO (16:49)
[2020-09-05] MEDS ORDERED: CLOPIDOGREL BISULFATE 75 MG TAB PO ONE (18:30)
[2020-09-05] MEDS ORDERED: ALPRAZOLAM 0.25 MG TAB PO ONE (18:30)
[2020-09-05] MEDS: PANTOPRAZOLE SOD 40 MG TABEC PO SCH (19:06)
[2020-09-05 20:50] VITALS: BP 115/73
--- NOTE | 2020-09-05 20:50 | NUR ---
RECEIVED PATIENT IN BEDSIDE SHIFT REPORT. PATIENT A&OX4. NO PAIN REPORTED, NO CHEST PAIN. PATIENT VERBALIZED HE WOULD LET THIS NURSE KNOW IF CHEST PAIN RETURNED. TELE RUNNING SINUS DOMONIQUE. LUNG SOUNDS CLEAR. BOWEL SOUNDS ACTIVE. NO EDEMA. PEDAL PULSES PALPABLE. PATIENT ORIENTED TO ROOM AND CALL LIGHT SYSTEM. PATIENT GIVEN INFORMATION ON CORONARY ARTERY DISEASE. NO NEEDS EXPRESSED AT THIS TIME. NO S&S OF DISTRESS NOTED. BED LOCKED IN LOWEST POSITION, SIDE RAILS UPX2, CALL LIGHT IN REACH.
[2020-09-05 20:51] VITALS: BP 115/73
[2020-09-05] MEDS ORDERED: ATORVASTATIN 40 MG TAB PO SCH (21:00)
[2020-09-05 21:47] VITALS: BP 115/73
[2020-09-05] MEDS: ISOSORBIDE DINITRATE 20 MG TAB PO SCH (21:55)
--- NOTE | 2020-09-05 22:37 | History and Physical ---
REASON FOR EVALUATION: Chest pain. HISTORY OF PRESENT ILLNESS: A 75-year-old gentleman with known hypertension, hyperlipidemia, and coronary artery disease. On the August, the patient had cardiac catheterization SHOWED severe mid LAD, muscle bridge and occluded Diagonal with collateral, had successful PCI with stenting of the mid LAD. He was dismissed home on medications. The patient is taking his medications. He came to the emergency room frightened because he felt very vague chest discomfort. He cannot describe it. His EKG showed no acute changes. His first set of cardiac enzyme is normal. The patient is admitted for further management. REVIEW OF SYSTEMS: GENERAL: No fever, no chills. HEENT: No vision problem. No hearing problem. PULMONARY: No cough. No hemoptysis. CARDIAC: As per above. GI: No hematemesis. No melena. : No hematuria. No dysuria. MUSCULOSKELETAL: No aches. No pain. SOCIAL HISTORY: He is . He is nonsmoker and non-alcohol drinker. PAST MEDICAL HISTORY: 1. Coronary artery disease. Recent cardiac catheterization on August, showed occluded diagonal with successful PCI stenting of the mid LAD. Also, presence of coronary spasm. 2. Hypercholesteremia. 3. Appendectomy. 4. Cholecystectomy. FAMILY HISTORY: Mother of renal failure at age 89. She was diabetic. Father of colon cancer at the age 79. Several of his siblings with coronary artery disease. CURRENT MEDICATIONS: 1. Aspirin 81 mg a day. 2. Metoprolol 25 mg twice a day. 3. Levothyroxine 50 mcg a day. 4. Atorvastatin 10 mg a day. 5. Flomax 0.4 mg a day. ALLERGIES: NONE. PHYSICAL EXAMINATION: VITAL SIGNS: Height of 6 feet, 3 inches, weight of 204 pounds, blood pressure 130/70, heart rate of 80, respiratory rate of 18. HEENT: Pupils are equal and reactive. NECK: No elevation of jugular venous pulsation. CHEST: Clear to auscultation and percussion. HEART: PMI, 5th left intercostal space. Normal first and second heart sound. ABDOMEN: Soft with good bowel sounds. EXTREMITIES: No signs, no clubbing, no edema. IMPRESSION AND PLAN: This is a gentleman here with chest pain, very atypical, recent PCI, admitted for further management. We will observe him. We will do serial cardiac enzymes. We will resume his Plavix and aspirin, beta-cici, statin, will add Isordil. We will follow the patient's progression pending on his lab and his course further steps to be done. MD NGUYEN Martins/MODLemuel /[id number]
[2020-09-06] VITALS: BP 101/63
[2020-09-06 00:14] LABS: CREATINE KINASE MB 2.3 ng/mL (0-5.0)
[2020-09-06] MEDS ORDERED: DEXTROSE 50% SYRINGE 50 ML IV PRN (00:15)
[2020-09-06] MEDS ORDERED: HYDRALAZINE HCL 20 MG/ML VIAL IV PRN (00:15)
[2020-09-06] MEDS ORDERED: HYDROCODONE/APAP 5MG-325MG TAB PO PRN (00:15)
[2020-09-06] MEDS ORDERED: MELATONIN 5 MG TABLET PO PRN (00:15)
[2020-09-06] MEDS ORDERED: POLYETHYLENE GLYCOL 3350 17 GM PACK PO PRN (00:15)
[2020-09-06] MEDS ORDERED: DOCUSATE SODIUM 100 MG CAP PO PRN (00:15)
[2020-09-06] MEDS ORDERED: GUAIFENESIN/CODEINE 10 ML CUP PO PRN (00:15)
[2020-09-06] MEDS ORDERED: ACETAMINOPHEN 325 MG TAB PO PRN (00:15)
[2020-09-06] MEDS ORDERED: BENZONATATE 100 MG CAP PO PRN (00:15)
[2020-09-06] MEDS ORDERED: ONDANSETRON HCL INJ 2MG/ML 2ML 2 MG/ML VIAL IV PRN (00:15)
[2020-09-06 04:00] VITALS: BP 94/58
--- NOTE | 2020-09-06 04:30 | NUR ---
MANUAL BP SHOWED READING OF 94/58, MAP OF 70. PATIENT REPORTS NO LIGHTHEADEDNESS, DIZZINESS, NAUSEA. PATIENT REPORTS FEELING PERFECTLY FINE. NO CHEST PAIN. PATIENT VERBALIZED HE WOULD CALL FOR ASSISTANCE TO RESTROOM TO ENSURE SAFETY. WILL CONTINUE TO MONITOR.
--- NOTE | 2020-09-06 07:00 | NUR ---
BEDSIDE ROUNDS COMPLETE NO DISTRESS NOTED, UPDATED ON POC VOICED UNDERSTANDING, DENIES PAIN AT THIS TIME, TELE 23 SR NOTED, NO OTHER CO VOICED CALL LIGHT IN REACH WILL CONTINUE OT MONITOR
[2020-09-06] MEDS: PANTOPRAZOLE SOD 40 MG TABEC PO SCH (07:30)
[2020-09-06] MEDS ORDERED: PANTOPRAZOLE SOD 40 MG TABEC PO SCH (07:30)
[2020-09-06 07:40] LABS: BASOPHILS % 0.7 % (0.0-1.0); EOSINOPHILS # (AUTO) 0.1 (0.0-0.4); HEMATOCRIT 39.1 % (38.2-49.6); HEMOGLOBIN 13.4 g/dL (14.0-18.0); LYMPHOCYTES # (AUTO) 1.4 (1.0-3.2); LYMPHOCYTES % 23.9 % (18.0-39.1); MEAN CORPUSCULAR HEMOGLOBIN 30.8 pg (28-32); MEAN CORPUSCULAR HGB CONC 34.3 g/dL (31-35); MEAN CORPUSCULAR VOLUME 89.9 fL (81-99); MONOCYTES # (AUTO) 0.5 (0.2-0.8); MONOCYTES % 8.5 % (4.4-11.3); NEUTROPHILS # (AUTO) 3.7 (2.1-6.9); NEUTROPHILS % 64.7 % (38.7-80.0); PLATELET COUNT 153 x10e3/uL (140-360); RED BLOOD COUNT 4.35 x10e6/uL (4.3-5.7); RED CELL DISTRIBUTION WIDTH 12.7 % (11.7-14.4)
[2020-09-06 08:02] VITALS: BP 101/68
[2020-09-06 08:04] VITALS: BP 101/68
[2020-09-06 08:10] LABS: ALANINE AMINOTRANSFERASE 15 IU/L (0-55); ALBUMIN 3.8 g/dL (3.5-5.0); ALBUMIN/GLOBULIN RATIO 1.3 (0.8-2.0); ALKALINE PHOSPHATASE 67 IU/L (40-150); ANION GAP 12.9 mmol/L (8-16); BLOOD UREA NITROGEN 15 mg/dL (7-26); BUN/CREATININE RATIO 16 (6-25); CALCIUM 8.7 mg/dL (8.4-10.2); CARBON DIOXIDE 26 mmol/L (22-29); CHLORIDE 105 mmol/L (98-107); CREATININE, SERUM 0.91 mg/dL (0.72-1.25); EST GLOMERULAR FILTRATION RATE > 60 ML/MIN (60-); GLUCOSE 97 mg/dL (74-118); POTASSIUM 3.9 mmol/L (3.5-5.1); SODIUM 140 mmol/L (136-145)
[2020-09-06] MEDS: ISOSORBIDE DINITRATE 20 MG TAB PO SCH (08:33)
[2020-09-06 08:34] LABS: CHOL/HDL RATIO 2.2 (3.9-4.7)
[2020-09-06 08:40] LABS: CREATINE KINASE MB 1.9 ng/mL (0-5.0)
[2020-09-06] MEDS ORDERED: CLOPIDOGREL BISULFATE 75 MG TAB PO SCH (09:00)
--- NOTE | 2020-09-06 09:14 | NUR ---
spoke with Dr. Liam mccarty to id home from cardiology standpoint, informed of low blood pressure, orders to stop isosorbide. no further instructions at this time
[2020-09-06 11:57] VITALS: BP 111/67
--- NOTE | 2020-09-06 13:31 | NUR ---
Discontinuing PT services since patient is independent in functional mobility. Thank you. Addendum: 09/06/20 at 1331 by Manpreet lanza PT Amended: Links added.
[2020-09-06] MEDS ORDERED: ONDANSETRON HCL 4 MG ORAL DISINTEGRATING TAB PO PRN (13:45)
--- NOTE | 2020-09-06 14:11 | History and Physical ---
CHIEF COMPLAINT: Chest pain. HISTORY OF PRESENT ILLNESS: A 75-year-old male with significant cardiac history, history of hyperlipidemia. He recently had a left heart catheterization last week ended up, undergoing a PCI stent and was discharged to home now, presents to the ED with complaints of chest pain. 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 Denies any burning sensation, but reports having history of acid reflux. Does not radiate to the left shoulder and arm. The patient seen and evaluated at bedside on the medical floor. He is currently doing well with no other issues at this time. He is currently chest pain free. Cardiology has been consulted. REVIEW OF SYSTEMS: Pertinent positive chest pain. The rest of 14-point review of systems are reviewed with the patient and are negative. ALLERGIES: NO KNOWN DRUG ALLERGIES. HOME MEDICATION: 1. Aspirin. 2. Metoprolol. 3. Levothyroxine. 4. Atorvastatin. 5. Flomax. PAST MEDICAL HISTORY: 1. CAD, recent heart catheterization on September 01, 2020, had a PCI stenting in the mid LAD, also has some coronary spasm. 2. Hyperlipidemia. PAST SURGICAL HISTORY: Appendectomy, cholecystectomy. PAST FAMILY HISTORY: Mother at age 89 renal failure, diabetic. Father of colon cancer at age 79. SOCIAL HISTORY: No drugs, no alcohol, does not smoke. He is . PHYSICAL EXAMINATION: VITAL SIGNS: Temperature is 98.2, pulse 65, respiratory rate is 19, blood pressure 111/67, pulse ox 100% on room air. GENERAL: No acute distress, alert, oriented x3. Cooperative on examination. PULMONARY: Clear to auscultation bilaterally. No wheezing, no rales, no rhonchi, no crackles appreciated. CARDIOVASCULAR: Positive S1, S2. No murmurs, rubs, or gallops appreciated. ABDOMEN: Soft, nondistended, nontender to palpation. Bowel sounds present. MUSCULOSKELETAL: Strength 5/5 throughout. No evidence of any muscle deficits on examination. SKIN: Intact. Warm to touch. Good cap refill. PSYCHIATRIC: Normal affect and mood. LABORATORY DATA: Labs show white count 5.6, hemoglobin 13, hematocrit 39, and platelets of 153. Chemistry; sodium 140, potassium 3.9, chloride 105, bicarb 26, anion gap of 12, BUN is 15, creatinine 0.91, glucose was 96, calcium is 8.7. LFTs within normal range. Troponins were negative. Albumin was 3. LDL 54, lipase 33. Coagulation; PT 14, INR 1.04, PTT 30. Serologies; coronavirus pending. MICROBIOLOGY: None. IMAGING STUDIES: Chest x-ray was found to be negative. IMPRESSION: 1. Chest pain likely atypical in nature. 2. History of coronary artery disease with recent left heart catheterization with the mid LAD stent placed back in 09/01/2020. 3. Hyperlipidemia. 4. Hypertension. PLAN: At this time, trend cardiac enzymes, which were found to be negative. EKG shows no acute findings. Continue with cardioprotective medications. It is felt to be likely underlying acid reflux leading to his chest pain. Cardiology has been consulted. Resume same home medications. Lovenox for DVT prophylaxis. Heart healthy diet. Potential discharge home soon. MD FACUNDO Jacobs/MICHAEL /[id number]
--- NOTE | 2020-09-06 15:32 | Discharge Summary ---
FINAL DISCHARGE DIAGNOSES: 1. Atypical chest pain. 2. History of coronary artery disease with recent left heart catheterization on September 01, 2020 with mid LAD stent. 3. Hyperlipidemia. CONSULTANTS: Cardiology. PHYSICAL EXAMINATION: VITAL SIGNS: Temperature is 98.2, pulse 65, respiratory rate 19, blood pressure 111/67, pulse ox 100% on room air. LABORATORY FINDINGS: CBC, white count 5.6, hemoglobin 13, hematocrit 39, platelets of 153,000. Coagulation PT 14, INR 1, PTT 30. Chemistry, sodium 140, potassium 3.9, chloride 105, bicarb 26, anion gap 12, BUN 15, creatinine 0.91, glucose 97, calcium 8.7. LFTs within normal range. Troponins were negative. Albumin 3.8, LDL 54, lipase 33. Serology; keith virus pending. MICROBIOLOGY: None. IMAGING STUDIES: Chest x-ray found to be negative. HOSPITAL COURSE: This is a 75-year-old male, who has a known history of CAD, underwent left heart catheterization back September 01, 2020, now presents with chest pain complaints. The patient was admitted under observation, Cardiology consulted. Cardiac enzymes found to be negative. It was felt by Cardiology the patient likely has some acid reflux leading to his underlying chest pain and chest pressure. The patient was doing well overnight with no complaints. He is currently chest pain-free with no other issues. He has been cleared for discharge by Cardiology. He has been given some nitroglycerin p.r.n. in the event he has chest pain. I also added some Protonix daily for his underlying potential acid reflux. The patient is currently chest pain-free, he has no complaints. He is ready for discharge to home. He has been cleared for discharge by Cardiology. On the day of discharge, vital signs were stable, labs reviewed and stable. The patient is seen, evaluated, and examined thoroughly on the day of discharge, no other complaints. The patient verbalized understanding and agrees to plan of care. 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 MEDICATIONS: See medication reconciliation form including Protonix 40 mg p.o. daily. DISPOSITION: Home. CONDITION: Stable. DIET: Heart healthy. In the event of worsening symptoms, the patient was advised to come back to the ED for further evaluation. Discharge summary took greater than 35 minutes. MD FACUNDO Jacobs/MICHAEL /[id number]
--- OUTSIDE RECORDS SUMMARY | 2020-09-08 18:47 | XMS REPORT | Continuity of Care Document ---
Author Author [facility] Organization [facility] Address [address] [place] [id number] Phone Unavailable Care Team Providers Care Engineering Assistant Name Role Phone Connie ROMERO Attphys Unavailable SWEET, Son LAIRD Attphys Unavailable OLSON, Alexsandra SUBHA Attphys Unavailable Problems This patient has no known problems. Allergies, Adverse Reactions, Alerts This patient has no known allergies or adverse reactions. Medications This patient has no known medications. Procedures This patient has no known procedures. Results Test Description Test Time Test Comments Results Result Comments Source CHEST SINGLE (PORTABLE) 2020-09-05 16:12:[address] [facility] : 1945 Sex: M [facility] [address] [place], [place] [address] Patient Name: JAYDE CRUZ MR #: [id number] : 1945 Age/Sex: 75/M Req #: [id number] Adm Physician: Ordered by: RAFFY ROMERO DO Report #: [id number] Location: ER Room/Bed: Procedure: [id number] DX/CHEST SINGLE (PORTABLE) Exam Date: 09/05/20 Exam Time: 1550 REPORT STATUS: Signed EXAMINATION: CHEST SINGLE (PORTABLE) INDICATION: Chest pain COMPARISON: Chest radiograph 08/31/2020 FINDINGS: LINES/TUBES:None LUNGS:The lungs are well-inflated. No focal consolidation or pulmonary edema. PLEURA:No pleural effusion or pneumothorax. MEDIASTINUM:The cardiomediastinal silhouette appears normal in size and shape. BONES/SOFT TISSUES:No acute osseous injury. ABDOMEN:No free air under the diaphragm. IMPRESSION: No focal pneumonia or pulmonary edema. Signed by: Purnima Arteaga MD on 09/05/2020 4:13 PM Dictated By: PURNIMA ARTEAGA MD 12 Transcribed By: JEFFREY on 09/05/201612 COPY TO: RAFFY ROMERO DO CHEST SINGLE (NOT PORTABLE) 2020-08-31 15:21:[address] [facility] : 1945 Sex: M [place] [address] Patient Name: JAYDE CRUZ MR #: [id number] : 1945 Age/Sex: 75/M Req #: [id number] Adm Physician: Ordered by: JAVY CABALLERO MD Report #: [id number] Location: ER Room/Bed: Procedure: [id number] DX/CHEST SINGLE (NOT PORTABLE) Exam Date: 08/31/20 Exam Time: 1425 REPORT STATUS: Signed EXAM: CHEST SINGLE (NOT PORTABLE) DATE: 08/31/2020 2:25 PM INDICATION: Chest pain COMPARISON: 03/05/2019 FINDINGS: The trachea is midline. The lungs are symmetrically expanded without evidence for large focal consolidation, pneumothorax, or significant pleural effusion. The cardiomediastinal silhouette and pulmonary vasculature are within normal limits. No acute osseous abnormality is identified. The surrounding soft tissues are unremarkable. IMPRESSION: No acute cardiopulmonary process identified. Signed by: Dr. Cabrera Negron MD on 08/31/2020 3:21 PM Dictated By: CABRERA NEGRON MD 152 Transcribed By: JEFFREY on 08/31/20 1521 COPY TO: JAVY CABALLERO MD CHEST 2 VIEWS 2019-03-05 14:12:00 [place] [address] Patient Name: JAYDE CRUZ MR #: [id number] : 1945 Age/Sex: 73/M Req #: [id number] Adm Physician: Ordered by: SUBHA OLSON MD Report #: [id number] Location: RAD Room/Bed: Procedure: [id number] DX/CHEST 2 VIEWS Exam Date: 03/05/19 Exam [...] 2:14 PM Dictated By: LAURENT BENITEZ MD 1414 Transcribed By: JEFFREY on 03/05/19 141 COPY TO: SUBHA OLSON MD [facility] 2018-07-29 14:02:00 [place] [address] Patient Name: JAYDE CRUZ MR #: [id number] : 1945 Age/Sex: 72/M Req #: [id number] Adm Physician: Ordered by: SUBHA OLSON MD Report #: [id number] Location: RAD Room/Bed: Procedure: [id number] DX/[facility] X-RAY Exam Date: 07/29/18 Exam Time: [...] 2:03 PM Dictated By: AMY AGARWAL MD 140 Transcribed By: JEFFREY on 07/29/18 140 COPY TO: SUBHA OLSON MD SP LUMBAR, COMPLETE MIN 4VW 2018-07-29 14:02:00 [place] [address] Patient Name: JAYDE CRUZ MR #: [id number] : 1945 Age/Sex: 72/M Req #: [id number] Adm Physician: Ordered by: SUBHA OLSON MD Report #: [id number] [facility]: [facility] Room/Bed: Procedure: [id number] DX/SP LUMBAR, COMPLETE MIN 4VW Exam Date: [...]
--- OUTSIDE RECORDS SUMMARY | 2020-09-08 18:48 | XMS REPORT | Continuity of Care Document ---
Author Author [facility] Organization [facility] Address [address] [place] [phone] Phone Unavailable Care Team Providers Care Learn To Swim Instructor Name Role Phone Connie ROMERO Attphys Unavailable [...] Source CHEST SINGLE (PORTABLE) 2020-09-05 16:12:00 [facility] : 1945 Sex: M [facility] [address] [place], [place] [address] Patient Name: JAYDE CRUZ MR #: [id number] : 1945 Age/Sex: 75/M Req #: [id number] Adm Physician: Ordered by: RAFFY ROMERO DO Report #: [id number] Location: ER Room/Bed: Procedure: [id number] DX/CHEST SINGLE (PORTABLE) Exam Date: 09/05/20 Exam [...] CHEST SINGLE (NOT PORTABLE) 2020-08-31 15:21:00 [facility] : 1945 Sex: M [place] [address] Patient Name: JAYDE CRUZ MR #: [id number] : 1945 Age/Sex: 75/M Req #: [id number] Adm Physician: Ordered by: JAVY CABALLERO MD Report #: [id number] Location: ER Room/Bed: Procedure: [id number] DX/CHEST SINGLE (NOT PORTABLE) Exam Date: 08/31/20 [...] CABALLERO MD CHEST 2 VIEWS 2019-03-05 14:12:00 [place] [address] Patient Name: JAYDE CRUZ MR #: [id number] : 1945 Age/Sex: 73/M Req #: [id number] Adm Physician: Ordered by: SUBHA OLSON MD Report #: [id number] Location: RAD Room/Bed: Procedure: [id number] DX/CHEST 2 VIEWS Exam Date: 03/05/19 Exam [...] SUBHA OLSON MD [facility] 2018-07-29 14:02:00 [place] [address] Patient Name: JAYDE CRUZ MR #: [id number] : 1945 Age/Sex: 72/M Req #: [id number] Adm Physician: Ordered by: SUBHA OLSON MD Report #: [id number] Location: RAD Room/Bed: Procedure: [id number] DX/[facility] X-RAY Exam Date: 07/29/18 Exam Time: [...] SP LUMBAR, COMPLETE MIN 4VW 2018-07-29 14:02:00 [place] [address] Patient Name: JAYDE CRUZ MR #: [id number] : 1945 Age/Sex: 72/M Req #: [id number] Adm Physician: Ordered by: SUBHA OLSON MD Report #: [id number] Location: [facility] Room/Bed: Procedure: [id number] DX/SP LUMBAR, COMPLETE MIN 4VW Exam Date: [...]
== END 2020-09-06 14:05 | disposition home or self-care (01) ==
LOC: ER 15:55 → ERHOLD 18:00 → MED/SURG 20:50
PROVIDERS: ADMIT Internal Medicine Cardiovascular Disease; ATTEND Internal Medicine Cardiovascular Disease
DX: R07.89 Other chest pain (principal); I10 Essential (primary) hypertension; E03.9 Hypothyroidism, unspecified; K21.9 Gastro-esophageal reflux disease without esophagitis; E78.5 Hyperlipidemia, unspecified; Z95.5 Presence of coronary angioplasty implant and graft; Z84.1 Family history of disorders of kidney and ureter; Z83.3 Family history of diabetes mellitus; Z80.0 Family history of malignant neoplasm of digestive organs; Z82.49 Family history of ischemic heart disease and other diseases of the circulatory system; Z01.812 Encounter for preprocedural laboratory examination; Z20.828 Contact with and (suspected) exposure to other viral communicable diseases
CPT/HCPCS: 36415 ×2; 71045; 80053 ×2; 80061; 82550 ×2; 82553 ×2; 83690; 83880; 84484 ×2; 85025 ×2; 85610; 85730; 93005; 97161; 99285; G0378 ×2; S0164 ×2; U0002

== ENCOUNTER → 2021-01-13 | Outpatient (CLI) | payer MEDICARE ==
[~2021-01-13] MED LIST changes: +ISOSORBIDE DINI20 MG PO; +NITROSTAT0.4 MG SL
== END ==
LOC: RAD 09:53
PROVIDERS: ATTEND Internal Medicine
DX: M85.661 Other cyst of bone, right lower leg (principal)

== ENCOUNTER 2023-01-23 19:18 | Emergency (ER) | payer MEDICARE ==
[~2023-01-23] VITALS: Ht 190.5 cm; Wt 87.5 kg
[2023-01-23 19:56] VITALS: O2SAT 100
[2023-01-23 20:12] LABS: BASOPHILS % 0.5 % (0.0-1.0); EOSINOPHILS % 0.4 % (0.0-6.0); HEMATOCRIT 40.6 % (38.2-49.6); HEMOGLOBIN 13.9 g/dL (14.0-18.0); LYMPHOCYTES # (AUTO) 1.2 (1.0-3.2); LYMPHOCYTES % 21.6 % (18.0-39.1); MEAN CORPUSCULAR HEMOGLOBIN 31.2 pg (28-32); MEAN CORPUSCULAR HGB CONC 34.2 g/dL (31-35); MONOCYTES # (AUTO) 0.3 (0.2-0.8); MONOCYTES % 5.9 % (4.4-11.3); NEUTROPHILS # (AUTO) 3.9 (2.1-6.9); NEUTROPHILS % 71.2 % (38.7-80.0); PLATELET COUNT 157 x10e3/uL (140-360); RED BLOOD COUNT 4.46 x10e6/uL (4.3-5.7); RED CELL DISTRIBUTION WIDTH 12.5 % (11.7-14.4)
[2023-01-23 20:29] LABS: ALBUMIN/GLOBULIN RATIO 1.3 (0.8-2.0); ANION GAP 17.8 mmol/L (8-16); CALCIUM 8.9 mg/dL (8.4-10.2); CREATININE, SERUM 0.87 mg/dL (0.72-1.25); POTASSIUM 3.8 mmol/L (3.5-5.1)
== END 2023-01-24 02:30 | disposition home or self-care (01) ==
LOC: ER 20:06
DX: R00.2 Palpitations (principal); R07.9 Chest pain, unspecified; I10 Essential (primary) hypertension; E03.9 Hypothyroidism, unspecified; I25.10 Atherosclerotic heart disease of native coronary artery without angina pectoris; E78.5 Hyperlipidemia, unspecified; K21.9 Gastro-esophageal reflux disease without esophagitis; Z95.5 Presence of coronary angioplasty implant and graft; R94.31 Abnormal electrocardiogram [ECG] [EKG]
CPT/HCPCS: 36415; 71045; 80053; 82550; 82553; 84484; 85025; 93005; 99284

== ENCOUNTER → 2025-05-13 | Outpatient (REF) | payer MEDICARE | LOC: RAD 10:29 | PROVIDERS: ATTEND Internal Medicine | DX: M43.07 Spondylolysis, lumbosacral region (principal) | CPT/HCPCS: 72110 ==